=== PATIENT | male | born 1970 | race Caucasian/White ===

== ENCOUNTER 2018-01-01 21:20 | Emergency (ER) | payer SELFPAY ==
[~2018-01-01] VITALS: Ht 182.9 cm; Wt 118.0 kg
[2018-01-01] MEDS ORDERED: ONDANSETRON HCL 4MG/2ML VIAL IV ONE (22:30)
[2018-01-01] MEDS ORDERED: MORPHINE SULFATE 10 MG/ML CPJ IV ONE (22:30)
[2018-01-01] MEDS ORDERED: PIPERACILLIN/TAZ 3.375G PREMIX 50 ML IV ONE (23:00)
[2018-01-01] MEDS ORDERED: HYDROCODONE/ACETAMINOPHEN 5/325MG TABLET PO ONE (23:00)
[2018-01-02 02:17] VITALS: BP 125/72
== END 2018-01-02 04:02 | disposition left against medical advice (07) ==
LOC: ER 21:20
DX: S62.631B Displaced fracture of distal phalanx of left index finger, initial encounter for open fracture (principal); S61.210A Laceration without foreign body of right index finger without damage to nail, initial encounter; W45.8XXA Other foreign body or object entering through skin, initial encounter; Y93.89 Activity, other specified; Y92.89 Other specified places as the place of occurrence of the external cause; Y99.8 Other external cause status; Z89.022 Acquired absence of left finger(s)
CPT/HCPCS: 73140; 96365; 99285; J2270; J2543; Z7610; J2405